=== PATIENT | female | born 1940 | race Caucasian/White ===

== ENCOUNTER 2024-08-24 05:47 | Outpatient (REF) | payer MEDICARE, SELFPAY ==
--- OUTSIDE RECORDS SUMMARY | 2024-04-15 17:30 | XMS_ITS ---
Author Organization [facility] Address [address] [place] [address] Care Team Providers Care Clerk Funeral Detail Name Role Phone DO NOT USE Kenji Barnett MD Primary Care Provider Unavailable OPAL WALLS Unavailable [phone] Migration, Provider Unavailable Unavailable Allergies Allergen (clinical drug ingredient) Drug/Non Drug Allergy documented on EMR Reaction Allergy Type Onset Date Status BIAXIN (uncoded) Unknown Allergy Act ana NYTLY (uncoded) Unknown Allergy Acti ve ciprofloxacin Cipro Unknown Drug Allergy Act ana lisinopril Lisinopril Unknown Drug Allergy Activ e pregabalin Lyrica Unknown Drug Allergy Active celecoxib CeleBREX Unknown Drug Allergy Active codeine Codeine Unknown Drug Allergy Active Penicillin Unknown Drug Allergy Active metformin metFORMIN Unknown Drug Allergy Active [facility] Conversion Encounter Medications Medication SIG (Take, Route, Frequency, Duration) Notes Start Date End Date Status ZyrTEC 5 MG 1 TAB(S) CHEWED ONCE A DAY *Please review and pick correct strength-formulat ion from [employer] options. If intended option is not shown, discontinue and re-order from Quick Search* Unknown B-12 2500 MCG 1 tab(s) sublinguall y once a day; Duration: 30 day(s) Unknown Furosemide 20 MG 1 tab(s) orally once a day; Duration: 30 day(s) Unknown Multivitamin MULTIPLE VITAMINS 1 TAB(S) CHEWED ONCE A DAY; Duration: 30 DAY(S) *Please review and pick correct strength-formulat ion from [employer] options. If intended option is not shown, discontinue and re-order from Quick Search* Unknown LEVEMIR FLEXPEN 100 UNITS/ML 0 SUBCUTANEOUSLY *Please review for potential replacement for e-prescription and drug interaction check* Active Tamsulosin HCl 0.4 MG 1 cap(s) orally once a day; Duration: 30 day(s) Unknown rOPINIRole HCl 1 MG 1 tab(s) orally 3 times a day; Duration: 30 day(s) Unknown Gabapentin 300 MG 1 cap(s) orally 3 times a day; Duration: 30 day(s) Unknown diazePAM 5 MG 1 tab(s) orally 4 times a day Unknown Ondansetron HCl 4 MG 1 tab(s) orally every 8 hours Unknown Premarin 0.625 MG/GM 1 g intravaginally once a day (in the evening); Duration: 21 day(s) Unknown Synthroid 137 MCG 1 tab(s) orally once a day; Duration: 30 day(s) Unknown Gemfibrozil 600 MG 1 tab(s) orally 2 times a day; Duration: 30 day(s) Unknown NexIUM 40 MG 1 ea orally once a day; Duration: 30 day(s) Unknown Atenolol 25 MG 1 tab(s) orally once a day; Duration: 30 day(s) Unknown Bactrim DS 800 MG-160 MG 1 TAB(S) ORALLY 2 TIMES A DAY; Duration: 5 DAYS *Please review and pick correct strength-formulat ion [facility]. If intended option is not shown, discontinue and re-order from Quick Search* 07/30/2014 Unknown Encounters Encounter Location Date Provider Diagnosis [facility] [address] [place] [address] 04/15/2024 Provider Migration Plan Of Treatment No Information Progress Notes * Ana VERNON NDOB: [birth year] (84 yo F)Acc No.[id number]:04/15/2024 Patient: Gino FLORESil N Provider: Kassandra gold Migration :1940 A ge:84 Y S ex:Female Date:04/15/2024 Address:[address] [place] [address] [id number] Pcp:Kenji DO NOT USE MD Ericka Subjective: * Chief Complaints: * 1 . [facility] Conversion Encounter. * Medical History: * Medications: T aking LEVEMIR FLEXPEN 100 UNITS/ML SOLUTION 0 SUBCUTANEOUSLY , Notes to Pharmacist: *Please review for potential replacement for e-prescription and drug interaction check*, Unknown Bactrim DS 800 MG-160 MG TABLET 1 TAB(S) ORALLY 2 TIMES A DAY , Notes to Pharmacist: *Please review and pick correct strength-formulation from [employer] options. If intended option is not shown, discontinue and re-order from Quick Search*, Unknown Gemfibrozil 600 MG Tablet 1 tab(s) orally 2 times a day , Unknown Premarin 0.625 MG/GM Cream 1 g intravaginally once a day (in the evening) , Unknown Synthroid 137 MCG Tablet 1 tab(s) orally once a day , Unknown NexIUM 40 MG Packet 1 ea orally once a day , Unknown Atenolol 25 MG Tablet 1 tab(s) orally once a day , Unknown diazePAM 5 MG Tablet 1 tab(s) orally 4 times a day , Unknown Ondansetron HCl 4 MG Tablet 1 tab(s) orally every 8 hours , Unknown rOPINIRole HCl 1 MG Tablet 1 tab(s) orally 3 times a day , Unknown Gabapentin 300 MG Capsule 1 cap(s) orally 3 times a day , Unknown Tamsulosin HCl 0.4 MG Capsule 1 cap(s) orally once a day , Unknown Furosemide 20 MG Tablet 1 tab(s) orally once a day , Unknown Multivitamin MULTIPLE VITAMINS TABLET, CHEWABLE 1 TAB(S) CHEWED ONCE A DAY , Notes to Pharmacist: *Please review and pick correct strength-formulation from [employer] options. If intended option is not shown, discontinue and re-order from Quick Search*, Unknown ZyrTEC 5 MG TABLET, CHEWABLE 1 TAB(S) CHEWED ONCE A DAY , Notes to Pharmacist: *Please review and pick correct strength-formulation from [employer] options. If intended option is not shown, discontinue and re-order from Quick Search*, Unknown B-12 2500 MCG Tablet 1 tab(s) sublingually once a day * Allergies: C ipro, BIAXIN, NYTLY, metFORMIN, CeleBREX, Codeine, Penicillin, Lisinopril, Lyrica. Objective: * Vitals: Assessment: Plan: * Treatment: * Images: Billing Information: * Visit Code: * Procedure Codes: * Electronic signature of Prov ider Migration on 08/24/2024 at 05:57 AM EDT Sign off status: Pending * Provider: Kassandra gold Migration Date: 0 04/15/2024 Generated for Jadon cottrell/Precious/Corrineitting on: 0 08/24/2024 05:57 AM EDT
--- OUTSIDE RECORDS SUMMARY | 2024-08-24 05:57 | XMS_ITS | Patient Health Record ---
Author Organization Boone Ford MD . [facility] Address [address] [place] [address] Care Team Providers Care Joy Operator Helper Name Role Phone Kenji Barnett Primary Care Provider BOONE Niño Unavailable [phone] ALLERGIES Allergen (clinical drug ingredient) Drug/Non Drug Allergy documented on EMR Reaction Allergy Type Onset Date Status NKDA (uncoded) Unknown Allergy Activ e REASON FOR REFERRAL No Information MEDICATIONS Medication SIG (Take, Route, Frequency, Duration) Notes Start Date End Date Status diazePAM Unknown HYDROmorphone HCl 2 MG 1-2 tablets as needed for pain Orally every 4 hours for 7 days 07/02/2020 Unknown oxyCODONE HCl 5 MG 1 tablet Orally every 6 hrs Unknown HYDROmorphone HCl 2 MG 1-2 tablets as needed for pain Orally every 4 hours for 7 days 06/18/2020 Unknown atenolol Unknown HYDROmorphone HCl 2 MG 1-2 tablet as needed Orally every 6 hrs Reason for prescription and acute postoperative pain care. May dispense S if requested by the patient. ICD-10 is G89.18 07/22/2020 Unknown traMADol HCl 50 MG 1 tablet as needed for pain Orally every 4 hours for 7 days 06/06/2020 Unknown HYDROmorphone HCl 2 MG 1-2 tablets as needed for pain Orally every 6 hours 07/11/2020 Unknown HYDROmorphone HCl 2 MG 0.5-1 tablets as needed for pain Orally every 6 hrs for 7 days 05/24/2020 Unknown Premarin Unknown Gemfibrozil Unknown HYDROmorphone HCl 2 MG 1-2 tablets as needed for pain Orally every 4 hours for 7 days 06/07/2020 Unknown Fluticasone Propionate Unknown Synthroid Unknown rOPINIRole HCl Unkno wn potassium Unknown SOCIAL HISTORY Sex Assigned At : Social History Observation Description Sex Assigned At Unknown PROBLEMS Problem Type ICD Code Onset Dates Problem Status W/U Status Risk SNOMED Code Notes Problem Other spondylosis with myelopathy, 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 Thoracic spondylosis with myelopathy (39973078) Problem Spondylosis without myelopathy or radiculopathy, cervical region (M47.812) Active confirmed Cervical spondylosis without myelopathy (213112323) Problem Spondylosis without myelopathy or radiculopathy, thoracic region (M47.814) Active confirmed Thoracic spondylosis without myelopathy (103604938) Problem Spondylosis without myelopathy or radiculopathy, lumbar region (M47.816) Active confirmed Lumbosacral spondylosis without myelopathy (64782505) Problem Other spondylosis, cervical region (M47.892) Active confirmed Cervical spondylosis without myelopathy (226006649) Problem Other spondylosis, lumbar region (M47.896) Active confirmed Lumbosacral spondylosis without myelopathy (14142468) PLAN OF TREATMENT No Information Insurance Providers Payer Name Payer Address Payer Phone Subscriber Number Group Number Insured Name Patient Relationship to Insured Coverage Start Date Coverage End Date Medicare A/B [id number] Ana Vernon Self - patient is the insured [employer] - [place] Medicare Supp [id number] Ana Vernon Self - patient is the insured MEDICAL (GENERAL) HISTORY Medical History History ICD Code diverfticulits h/o Hypertension h/o Hyperlipidemia h/o DM h/o Osteoporosis/Osteopenia h/o Depression/Anxiety h/o GERD Surgical History Surgery Date(Month/Year) T&A tubal ligation lumbar surgery kidney stone right hip surgery
--- OUTSIDE RECORDS SUMMARY | 2024-08-24 05:57 | XMS_ITS | Patient Health Record ---
Author Organization [facility] Address [address] [place] [address] [address] [place] [address] Care Team Providers Care Teasel Gig Operator Name Role Phone Rigo Valencia M.D. Primary Care Provider LAWRENCE Tejeda Unavailable [phone] Chad NASCIMENTO, Alpesh Unavailable Unavailable Reason For Referral No Information Plan Of Treatment No Information Insurance Providers Payer Name Payer Address Payer Phone Subscriber Number Group Number Insured Name Patient Relationship to Insured Coverage Start Date Coverage End Date Medicare of [place] - [id number] [address] [place] [address] [id number] Ana Vernon Self - patient is the insured [facility] Supplemental [address] [place] [address] [id number] Ana Vernon Self - patient is the insured
--- OUTSIDE RECORDS SUMMARY | 2024-08-24 05:57 | XMS_ITS | Data Portability ---
Author Organization [facility], [facility] Address [address] [place] [address] Care Team Providers Care Automation Manager Name Role Phone DOUGLAS HARDEN Primary Care Provider Assessment Encounter Date Assessment Date Assessment LastModified by Organization Details LastModified Time 03/03/2024 03/03/2024 Assessment sever e chronic right carpal tunnel syndrome Plan: Pathophysiology of carpal tunnel syndrome has been reviewed. Treatment options have been reviewed. She would like to proceed with a wide-awake local carpal tunnel release surgery. We have discussed what is involved with the surgery and the anticipated recovery. This will likely need to be performed at [facility]. We discussed the possibility of irreversible nerve changes that do not fully recover after surgery. We have discussed the postoperative recovery course for the recommended surgery. Risks of surgery include but are not limited to: Infection, bleeding, damage normal tissues, need for future surgeries, and recurrent or recalcitrant symptoms after surgery. Questions asked and answered to the patient's satisfaction; surgery to be scheduled with my paralegal legal secretary. [email or web address] Not available 03/03/2024 15:43:48 Plan of Treatment Reminders Order Date Submit Date Provider Last Modified By Organization Details Last Modified Time Details Appointments RECHECK 10 2024 01:00P M Gareth Bill PA-C Not available Not available Not available Lab None recorded . Referral None recorded . Procedures None recorded . Surgeries carpal tunnel release (SURG) 03/23/ 025 [email or web address] [place], [address], [place], [address], 03/08/2024 10:20:25 Imaging None recorded . Medication Orders None recorded . Patient TargetsNo targets recorded. Patient InstructionsNo instructions recorded. Reason for Referral None Reported. Problems Name Problem SNOMED Code Status Onset Date Resolution Date Notes Provider Name and Address Organization Details Recorded Time Rotator cuff arthropat hy of left shoulder 423210828719 Active 2023 Gareth Bill PA-C [address], [place], [address] , [facility] 4 06:51:14 Closed supracond ylar fracture of right femur 841760804006 Active 2017 Problem Code: S72.451D ; Problem Code Type: ICD-10; Status: 'A'; Not Available [facility] 4 11:12:35 Closed fracture of greater trochante r of right femur 796557782360 Active 2017 Problem Code: S72.111A ; Problem Code Type: ICD-10; Status: 'A'; Not Available [facility] 4 11:12:35 Periprost hetic fracture 411643883 Active 2017 Problem Code: M97.11XA ; Problem Code Type: ICD-10; Status: 'A'; Not Available [facility] 4 11:12:36 Periprost hetic fracture of hip 466353550080 32543 Active 2017 Problem Code: M97.01XD ; Problem Code Type: ICD-10; Status: 'A'; Not Available [facility] 4 11:12:36 Problem Notes None recorded. Procedures Surgical History Date Name Laterality Status Provider Name and Address Organization Details Recorded Time 5 Sports Shoulder completed Gareth Bill PA-C [address], [place], [address], [facility] 07/08/2024 06:36:30 4 Sports Shoulder completed Gareth Bill PA-C [address], [place], [address], [facility] 12/28/2023 09:50:48 4 Sports Shoulder completed Gareth Bill PA-C [address], [place], [address], [facility] 09/13/2023 06:50:58 4 Sports Shoulder 4&1 completed Gareth Bill PA-C [address], [place], [address], [facility] 06/14/2023 13:59:28 Imaging Results None recorded. Procedure Notes None recorded. Medical Equipment None Reported. Allergies Allergen ID Allergen Name Allergen Category Reaction Reaction Severity Criticality Documentation Date Start Date Code Code System Note Provider Name and Address Organization Details Recorded Time 353815 Cipro medicatio n Not available Not available Not available 04/12/20232017 50195 3 RxNorm Not Available [facility] 4 15:26:56 508390 codeine sulfate medicatio n Not available Not available Not available 04/12/20232017 26006 RxNorm Not Available [facility] 4 15:26:57 144367 penicilli n G benzathin e medicatio n Not available Not available Not available 04/12/20232017 7982 RxNorm Not Available [facility] 4 15:26:57 091035 morphine sulfate medicatio n Not available Not available Not available 04/12/20232019 68330 RxNorm Not Available [facility] 4 15:26:57 149919 cephalexi n medicatio n Not available Not available Not available 03/03/2024 2231 RxNorm CHRISTINE TRINIDAD null, [facility] 5 15:56:05 372785 Celebrex medicatio n Not available Not available Not available 03/03/2024 79512 7 RxNorm CHIRSTINE TRINIDAD null, [facility] 5 15:56:14 359009 methenami ne medicatio n Not available Not available Not available 03/03/2024 6832 RxNorm CHRISTINE TRINIDAD null, [facility] 5 15:56:31 178165 tree and shrub pollen environme nt,medica tion Not available Not available Not available 03/03/2024 46257 UNK CHRISTINE quigley, [facility] 5 15:58:23 932163 grass pollen environme nt,medica tion Not available Not available Not available 03/03/2024 18735 UNK CHRISTINE quigley, [facility] 5 15:58:30 725984 Rabbit serum protein (substanc e) environme nt,medica tion Not available Not available Not available 03/03/2024 16640 4002 SNOMED CHRISTINE TRINIDAD [facility], [facility] 5 15:58:38 838395 animal dander environme nt Not available Not available Not available 03/03/2024 43131 K CHRISTINE TRINIDAD [facility], [facility] 15:58:44 Medications Name Sig Start Date Stop Date Status Note LastModified by Organization Details LastModified Time furosemide 40 mg tablet TAKE 1 TABLET BY MOUTH TWICE A DAY active Not Available Not Available No t Available metolazone 2.5 mg tablet TAKE 1 TABLET BY MOUTH EVERY DAY FOR 4 DAYS active Not Available Not Available No t Available nystatin 100,000 unit/mL oral suspension SWISH & SWALLOW 5 ML BY MOUTH 4 TIMES A DAY FOR 10 DAYS active Not Available Not Available No t Available doxycycline hyclate 100 mg capsule TAKE 1 CAPSULE BY MOUTH EVERY 12 HOURS FOR 10 DAYS. MAY TAKE WITH FOOD TO LESSEN STOMACH DISCOMFOR T. active Not Available Not Available No t Available ropinirole 1 mg tablet TAKE 2 TABLETS BY MOUTH TWICE DAILY 03/03 completed Not Available Not Available Not Available atorvastati n 10 mg tablet TAKE 1 TABLET BY MOUTH EVERY DAY active Not Available Not Available No t Available fluconazole 150 mg tablet TAKE 1 TABLET BY MOUTH ONCE active Not Available Not Available No t Available cephalexin 250 mg capsule TAKE 1 CAPSULE BY MOUTH 3 TIMES A DAY FOR 7 DAYS active Not Available Not Available No t Available Synthroid 150 mcg tablet active Not Available Not Available Not Available FreeStyle Lancets 28 gauge USE TO CHECK BLOOD SUGARS ONCE A DAY 03/03 completed Not Available Not Available Not Available Synthroid 125 mcg tablet TAKE 1 TABLET BY MOUTH DAILY active Not Available Not Available No t Available famotidine 40 mg tablet TAKE 1 TABLET BY MOUTH TWICE A DAY active Not Available Not Available No t Available glipizide ER 5 mg tablet, extended release 24 hr TAKE 1 TABLET BY MOUTH EVERY DAY active Not Available Not Available No t Available atenolol 25 mg tablet active Not Available Not Available No t Available potassium chloride ER 10 mEq tablet,exte nded release active Not Available Not Available Not Available prochlorper azine maleate 10 mg tablet TAKE 1 TABLET BY MOUTH 2 TIMES A DAY NEEDED FOR NAUSEA & VOMITING active Not Available Not Available No t Available trimethopri m 100 mg tablet TAKE 1 TABLET BY MOUTH EVERY DAY AT BEDTIME active Not Available Not Available No t Available sulfamethox azole 800 mg-trimetho prim 160 mg tablet TAKE 1 TABLET BY MOUTH TWICE A DAY FOR 7 DAYS active Not Available Not Available No t Available tramadol 50 mg tablet TAKE 1 TABLET BY MOUTH EVERY 6 HOURS FOR 28 DAYS NEEDED FOR SEVERE PAIN active Not Available Not Available No t Available spironolact one 25 mg tablet TAKE 1 TABLET BY MOUTH EVERY MORNING active Not Available Not Available No t Available cefadroxil 500 mg capsule TAKE 1 CAPSULE BY MOUTH EVERY 12 HOURS FOR 7 DAYS active Not Available Not Available No t Available baclofen 10 mg tablet TAKE 1/2 TABLET BY MOUTH 3 TIMES A DAY NEEDED FOR SPASM active Not Available Not Available No t Available doxycycline monohydrate 100 mg capsule TAKE 1 CAPSULE BY MOUTH TWICE A DAY FOR 10 DAYS active Not Available Not Available No t Available ropinirole 2 mg tablet TAKE 1 TABLET BY MOUTH TWICE A DAY NEEDED RESTLESS LEGS active Not Available Not Available No t Available cephalexin 500 mg capsule TAKE 1 CAPSULE BY MOUTH FOUR TIMES A DAY FOR 10 DAYS active Not Available Not Available No t Available pseudoephed rine-guaife nesin ER 80-700 mg tablet,exte nded release PRN PAINDO NOT DRIVE WHILE TAKING THIS MEDICATIO N 2017 active Statu s: 'Curr ent'; Not Available Not Available Not Available esomeprazol e magnesium 40 mg capsule,del ayed release active Not Available Not Available Not Available sertraline 25 mg tablet TAKE 1 TABLET BY MOUTH EVERYDAY AT BEDTIME active Not Available Not Available No t Available irbesartan 75 mg tablet TAKE 1 TABLET BY MOUTH EVERY DAY active Not Available Not Available No t Available hydroxyzine HCl 25 mg tablet TAKE 1 CAPSULE BY MOUTH 3 TIMES A DAY FOR 14 DAYS, NEEDED FOR ANXIETY active Not Available Not Available No t Available albuterol sulfate HFA 90 mcg/actuati on aerosol inhaler INHALE 2 PUFFS EVERY 6 HOURS NEEDED FOR SHORTNESS OF BREATH OR WHEEZING active Not Available Not Available No t Available ondansetron 4 mg disintegrat ing tablet TAKE 1 TABLET BY MOUTH EVERY 6 HOURS NEEDED FOR NAUSEA AND VOMITING active Not Available Not Available No t Available fluticasone propionate 50 mcg/actuati on nasal spray,suspe nsion active Not Available Not Available Not Available magnesium active Not Available Not Nenita ilable Not Available aspirin active Not Available Not Avail able Not Available levothyroxi ne active Not Available Not Available Not Available omeprazole active Not Available Not Av ailable Not Available FreeStyle Lite Meter kit USE TO CHECK BLOOD SUGARS ONCE A DAY 03/03 completed Not Available Not Available Not Available FreeStyle Lite Strips USE TO CHECK BLOOD SUGARS ONCE A DAY 03/03 completed Not Available Not Available Not Available oxycodone HCl-oxycodo ne-ASA oxyCODONE HCl 5MG Tablet 2017 active Statu s: 'Curr ent'; Not Available Not Available Not Available Vitals Date Recorded Body height Provider Name an d Address Organization Details Last Updated DateTime 03/03/2024 157.48 cm CHRISTINE TRINIDAD [facility] 03/03/2024 15:20:59 Date Recorded Body height Body mass index (BMI) Body weight Provider Name and Address Organization Details Last Updated DateTime 06/14/2023 157.48 cm 31.1 kg/m2 62705.7 g Gareth Bill PA-C [address], [address], [facility] 06/14/2023 13:47:48 Date Recorded Body height Body mass index (BMI) Body weight Provider Name and Address Organization Details Last Updated DateTime 07/07/2024 157.48 cm 31.1 kg/m2 76043.7 g Gareth Bill PA-C [address] [place] [address], [address], [facility] 07/07/2024 15:02:33 Date Recorded Body height Body mass index (BMI) Body weight Provider Name and Address Organization Details Last Updated DateTime 09/13/2023 157.48 cm 31.1 kg/m2 82941.7 g Gareth Bill PA-C [address], [place], [address], [facility] 09/13/2023 13:42:42 Date Recorded Body height Body mass index (BMI) Body weight Provider Name and Address Organization Details Last Updated DateTime 12/28/2023 157.48 cm 31.1 kg/m2 23336.7 g Gareth Bill PA-C [address], [place], [address], [facility] 12/28/2023 12:45:36 Social History None recorded. Functional Status None recorded. Mental Status None recorded. Family History Nothing Reported. Medical History No medical history recorded. Gynecological HistoryNo gynecological history recorded. Obstetrics History GPAL:G 0 P 0 0 0 0 Past Encounters Encounter ID Performer Location Encounter Start Date Encounter Closed Date Diagnosis/Indication Diagnosis SNOMED-CT Code Diagnosis ICD10 Code Diagnosis Note [id number] Gareth Bill PA-C [facility] [address] [place] [address] 06/14/2023 13:34:35 06/24/2023 16:13:03 [id number] [facility] [address] [place] [address] 09/13/2023 13:32:33 10/04/2023 16:15:12 Rotator cuff arthropathy of left shoulder 4586464226 8948800 M25.254 [id number] JOSHUA Uribe [address] [place] [address] 12/28/2023 12:39:33 01/17/2024 09:30:24 Rotator cuff arthropathy of left shoulder 5886562408 7084320 M25.728 [id number] MD AKTHERYN [facility] [address] [place] [address] 03/03/2024 14:57:40 03/22/2024 07:46:31 Carpal tunnel syndrome of right wrist 2144612848 72420 G56.01 [id number] JOSHUA Uribe [address] [place] [address] 07/07/2024 14:50:34 07/18/2024 12:41:32 Rotator cuff arthropathy of left shoulder 6486091476 3908908 M25.812 Health Concerns Section Related Observation LastModified by Organization Detai ls LastModified Time None Recorded Concern Status LastModified by Organization Details LastModified Time None Recorded Advance Directives Directive None Recorded Payers Insurance Date Sequence Insurance Name Policy Number Policy Vazquez Covered Member ID Vazquez Member ID Guarantor Name 07/18/2024 2 [employer] (MEDICARE SUPPLEMENT) Ana Vernon [id number] Ana Vernon 07/07/2024 1 [place]IC[place] [employer] Ana Vernon [id number] Ana eVrnon Notes Date Note Type Note Provider Name and Address Organization Details Recorded Time 06/14/2023 text/html I am seeing the patient today under the supervision of Dr. Cotton who was available but who did not see the patient. REASON FOR VISIT Patient returns today for follow-up evaluation reporting less benefit from previous injection in the medical record. She has been suffering with day-to-day limitations comes and wants to discuss possibility of repeat injection. PAST MEDICAL/SURGICAL HISTORY Current medications per intake sheet. PHYSICAL FINDINGS The patient is well appearing, in no apparent distress, alert and oriented to person, place and time. Gait is symmetric. No significant swelling, warmth or erythema about either shoulder. LeftShoulder exam : Limited range of motion with slightly altered mechanics in all planes, there is mild tenderness to palpation about the shoulder, moderate crepitus through mid range manipulations. 4/5 strength of the shoulder with ER, Forward flexion. Negative belly press test. Minimal tenderness overlying AC joint. Cervical Exam demonstrates limited ROM without radicular symptoms. Peripheral, vascular, lymphatic examination, skin, neurologic coordination, reflexes, sensation are within normal limits. ASSESSMENT Left Chronic Rotator Cuff Tear PLAN Moderating activities with the upper extremity recommended. The patient will follow up as symptoms require going forward. Supramed speech recognition juvenile justice officer software was used to create portions of this document. An attempt at proofreading has been made to minimize errors. Please call for corrections Gareth Bill PA-C [address], [place], [address], [facility] 06/14/2023 14:01:49 09/13/2023 text/html I am seeing the patient today under the supervision of Dr. Cotton who was available but who did not see the patient. REASON FOR VISIT Patient returns today for follow-up evaluation reporting less benefit from previous injection in the medical record. She has been suffering with day-to-day limitations comes and wants to discuss possibility of repeat injection. PAST MEDICAL/SURGICAL HISTORY Current medications per intake sheet. PHYSICAL FINDINGS The patient is well appearing, in no apparent distress, alert and oriented to person, place and time. Gait is symmetric. No significant swelling, warmth or erythema about either shoulder. LeftShoulder exam : Limited range of motion with slightly altered mechanics in all planes, there is mild tenderness to palpation about the shoulder, moderate crepitus through mid range manipulations. 4/5 strength of the shoulder with ER, Forward flexion. Negative belly press test. Minimal tenderness overlying AC joint. Cervical Exam demonstrates limited ROM without radicular symptoms. Peripheral, vascular, lymphatic examination, skin, neurologic coordination, reflexes, sensation are within normal limits. ASSESSMENT Left Chronic Rotator Cuff Tear PLAN Moderating activities with the upper extremity recommended. The patient will follow up as symptoms require going forward. Supramed speech recognition juvenile justice officer software was used to create portions of this document. An attempt at proofreading has been made to minimize errors. Please call for corrections JIMI Uribe-Char [address], [place], [address], [facility] 09/13/2023 14:09:41 12/28/2023 text/html I am seeing the patient today under the supervision of Dr. Martinez who was available but who did not see the patient. REASON FOR VISITPatient returns today for follow-up evaluation reporting less benefit from previous injection in the medical record. She has been suffering with day-to-day limitations comes and wants to discuss possibility of repeat injection. PAST MEDICAL/SURGICAL HISTORYCurrent medications per intake sheet. PHYSICAL FINDINGSThe patient is well appearing, in no apparent distress, alert and oriented to person, place and time. Gait is symmetric. No significant swelling, warmth or erythema about either shoulder. LeftShoulder exam : Limited range of motion with slightly altered mechanics in all planes, there is mild tenderness to palpation about the shoulder, moderate crepitus through mid range manipulations. 4/5 strength of the shoulder with ER, Forward flexion. Negative belly press test. Minimal tenderness overlying AC joint. Cervical Exam demonstrates limited ROM without radicular symptoms. Peripheral, vascular, lymphatic examination, skin, neurologic coordination, reflexes, sensation are within normal limits. ASSESSMENTLeft Chronic Rotator Cuff Tear PLANModerating activities with the upper extremity recommended. The patient will follow up as symptoms require going forward. Supramed speech recognition juvenile justice officer software was used to create portions of this document. An attempt at proofreading has been made to minimize errors. Please call for corrections Gareth Bill PA-C [address], [place], [address], [facility] 12/28/2023 13:04:44 03/03/2024 text/html 83 yo RHD female seen for transfer of care for right carpal tunnel syndrome diagnosed and treated to this point at the hand center where she had anticipated scheduling a right carpal tunnel release surgery, but the surgery was never successfully scheduled and she is here today hoping to achieve this goal of scheduling a right carpal tunnel release surgery. Domi Lopez MD [address], [place], [address], [facility] 03/03/2024 15:44:33 07/07/2024 text/html I am seeing the patient today under the supervision of Dr. Martinez who was available but who did not see the patient. Clinical update: Patient returns today for follow-up evaluation, we are sorry for the loss of her who within the last several months. She comes in with ongoing complaints of left shoulder pain, she is having some lower leg swelling she is utilizing compression wraps and is scheduled to see the wound clinic for this. PAST MEDICAL/SURGICAL HISTORYCurrent medications per intake sheet. PHYSICAL FINDINGSThe patient is well appearing, in no apparent distress, alert and oriented to person, place and time. Gait is symmetric. No significant swelling, warmth or erythema about either shoulder. LeftShoulder exam : Limited range of motion with slightly altered mechanics in all planes, there is mild tenderness to palpation about the shoulder, moderate crepitus through mid range manipulations. 4/5 strength of the shoulder with ER, Forward flexion. Negative belly press test. Minimal tenderness overlying AC joint. Cervical Exam demonstrates limited ROM without radicular symptoms. Peripheral, vascular, lymphatic examination, skin, neurologic coordination, reflexes, sensation are within normal limits. ASSESSMENTLeft Chronic Rotator Cuff Tear PLANModerating activities with the upper extremity recommended. The patient will follow up as symptoms require going forward. [facility] speech recognition juvenile justice officer software was used to create portions of this document. An attempt at proofreading has been made to minimize errors. Please call for corrections Gareth Bill PA-C [address] [place] [address] [address], [place], [address], [place] [facility] 07/08/2024 06:37:56 OBGyn Episode No OBEpisode recorded.
--- OUTSIDE RECORDS SUMMARY | 2024-08-24 05:58 | XMS_ITS | Patient Health Record ---
Author Organization [facility] Address [address] [place], [place] [id number] Care Team Providers Care Radiological Metallurgist Name Role Phone Rene Forde MD Primary Care Provider Germaine High MD, [facility] Unavailable [phone] Allergies Allergen (clinical drug ingredient) Drug/Non Drug Allergy documented on EMR Reaction Allergy Type Onset Date Status codeine Codeine Sulfate Unknown Drug Allergy A ctive Penicillin Unknown Drug Allergy Active Reason For Referral No Information Medications Medication SIG (Take, Route, Frequency, Duration) Notes Start Date End Date Status Estradiol 0.1 MG/GM 2 grams intravaginal ly QOD; Duration: 90 days 11/10/2012 Active Beta-Funmilayo 0.1 % 1 application sparin gly to affected area Externally prn Active Neurontin 100 MG as directed Orally Active Clobetasol Propionate 0.05 % 1 application to affected area Externally Twice a day; Duration: 30 day(s) 08/17/2012 Active Gabapentin 300 mg as directed Orally 3 x's daily Active NexIUM 40 MG 1 capsule Orally Onc e a day; Duration: 30 day(s) Active rOPINIRole HCl 1 MG 1 tablet 1 to 3 hour s before bedtime Orally 3 x 's daily; Duration: 30 day(s) Active Atenolol 25 MG 1 tablet Orally Once a day; Duration: 30 day(s) Active Zofran 4 MG as directed Orally Active Vagisil Active Requip unknown 1 tablet 1 to 3 hour s before bedtime Orally Once a day; Duration: 30 day(s) Activ e Gemfibrozil 600 MG 1 tablet Orally Twic e a day; Duration: 30 day(s) Active Premarin .625 mg Act ana Synthroid 0.137 mg A ctive Social History Tobacco Use: Social History Observation Description Date Details (start date - stop date) Former Smoker NA - NA Tobacco Use: Question Answer Notes Are you a: former smoker How long has it been since you last smoked? 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 Plan Of Treatment No Information Insurance Providers Payer Name Payer Address Payer Phone Subscriber Number Group Number Insured Name Patient Relationship to Insured Coverage Start Date Coverage End Date MEDICARE B Part B Claims [address] [place] [phone] [id number] Ana Vernon Self - patient is the insured [facility] [address] [place] [address] [id number] Ana Vernon Self - patient is the insured Medical (General) History Medical History History ICD Code hypertension (HTN) Hypothyroidism REFLUX hypercholestrolemia cataracts back issue Hospitalized for episode of GERD type 2 diabetes Fell, R ankle fx, L leg fx restless leg syndrome 2012 Surgical History Surgery Date(Month/Year) T & A eye sx L 1947 cataract removal bilateral tubal ligation (BTL) 1970 hysterectomy (kept ovaries) 1971 hernia repair LL abd. 1988 breast lump removed B-9 L 1994 cholecystectomy 1996 carpal tunnel 2008 rotator cuff tear repair 2008 hip replacement RT 2009 Lap BSO, [place], cystoscopy
[2024-08-24 06:03] LABS: MANUAL DIFF FLAG NO
[2024-08-24 06:30] LABS: Hematocrit 36.0 % (37.0-47.0); Hemoglobin 11.5 g/dl (12.0-16.0); Imm Gran Abs Auto 0.22 X10*3/uL (0.00-0.03); Imm Gran Pct Auto 2.6 % (0.0-0.4); Lymphocytes Absolute Auto 1.5 X10*3/uL (1.2-4.9); Mean Corpuscular HGB Conc 31.9 g/dl (31.0-35.0); Mean Corpuscular Hemoglobin 30.5 pg (27.0-33.0); Mean Corpuscular Volume 95.5 fL (80.0-98.0); NRBC Abs Auto 0.000 X10*3/uL (0.0-0.012); NRBC Pct Auto 0.0 /100WBC (0.0-0.2); Platelet Count 237 X10*3/uL (160-400); Red Blood Count 3.77 X10*6/uL (4.20-5.50); White Blood Count 8.5 X10*3/uL (4.8-10.8)
[2024-08-24 06:43] LABS: Alanine Aminotransferase 39 U/L (0-31); Albumin Level 3.1 g/dL (3.5-5.0); Alkaline Phosphatase 175 U/L (39-117); Anion Gap 13 (12-20); Aspartate Amino Transferase 63 U/L (5-31); Blood Urea Nitrogen 15 mg/dL (9-16); Calcium 8.4 mg/dL (8.4-10.2); Carbon Dioxide 22 mmol/L (22-29); Chloride 109 mmol/L (96-108); Estimated Glomerular Filt Rate > 60; Potassium 3.4 mmol/L (3.3-5.1); Sodium 141 mmol/L (135-145); Total Protein 6.1 g/dL (6.5-8.0)
[2024-08-24 07:32] LABS: Hemoglobin A1C 190.7202 umol/L; Total Hemoglobin (HGBA1C) 3005.2366 umol/L
== END 2024-08-24 05:48 | disposition home or self-care (01) ==
LOC: HO.MMNH2L 05:47
PROVIDERS: Visit Provider Student in an Organized Health Care Education/Training Program
DX: Z02.2 Encounter for examination for admission to residential institution (principal); Z13.1 Encounter for screening for diabetes mellitus; L03.90 Cellulitis, unspecified
CPT/HCPCS: 36415; 80053; 83036; 85025

== ENCOUNTER 2024-11-22 06:06 | Outpatient (REF) | payer MEDICARE, SELFPAY ==
--- OUTSIDE RECORDS SUMMARY | 2024-04-15 17:30 | XMS_ITS ---
Author Organization [facility] Address [address] [place] [address] Care Team Providers Care Human Factors Ergonomist Name Role Phone DO NOT USE Kenji Barnett MD Primary Care Provider Unavailable OPAL WALLS Unavailable [phone] Migration, Provider Unavailable Unavailable Allergies Allergen (clinical [...] Unknown Drug Allergy Active REASON FOR VISIT [facility] Conversion Encounter Medications Medication SIG (Take, Route, Frequency, Duration) Notes Start Date End Date Status ZyrTEC 5 MG TABLET, CHEWABLE 1 TAB(S) CHEWED ONCE A DAY *Please review and pick correct strength-formulat ion from [employer] options. If intended option is not shown, discontinue and re-order from Quick Search* Unknown B-12 2500 MCG Tablet 1 tab(s) sublingually once a day; Duration: 30 day(s) Unknown Furosemide 20 MG Tablet 1 tab(s) orally once a day; Duration: 30 day(s) Unknown Multivitamin MULTIPLE VITAMINS TABLET, CHEWABLE 1 TAB(S) CHEWED ONCE A DAY; Duration: 30 DAY(S) *Please review and pick correct strength-formulat ion from [employer] options. If intended option is not shown, discontinue and re-order from Quick Search* Unknown LEVEMIR FLEXPEN 100 UNITS/ML SOLUTION 0 SUBCUTANEOUSLY *Please review for potential replacement for e-prescription and drug interaction check* Active Tamsulosin HCl 0.4 MG Capsule 1 cap(s) orally once a day; Duration: 30 day(s) Unknown rOPINIRole HCl 1 MG Tablet 1 tab(s) orally 3 times a day; Duration: 30 day(s) Unknown Gabapentin 300 MG Capsule 1 cap(s) orally 3 times a day; Duration: 30 day(s) Unknown diazePAM 5 MG Tablet 1 tab(s) orally 4 times a day Unknown Ondansetron HCl 4 MG Tablet 1 tab(s) orally every 8 hours Unknown Premarin 0.625 MG/GM Cream 1 g intravaginally once a day (in the evening); Duration: 21 day(s) Unknown Synthroid 137 MCG Tablet 1 tab(s) orally once a day; Duration: 30 day(s) Unknown Gemfibrozil 600 MG Tablet 1 tab(s) orally 2 times a day; Duration: 30 day(s) Unknown NexIUM 40 MG Packet 1 ea orally once a day; Duration: 30 day(s) Unknown Atenolol 25 MG Tablet 1 tab(s) orally once a day; Duration: 30 day(s) Unknown Bactrim DS 800 MG-160 MG TABLET 1 TAB(S) ORALLY 2 TIMES A DAY; Duration: 5 DAYS *Please review and pick correct strength-formulat ion from [employer] options. If intended option is not shown, discontinue and re-order from Quick Search* 07/30/2014 Unknown Encounters Encounter Location Date Provider Diagnosis [facility] [address] [place] [address] 04/15/2024 Provider Migration Plan Of Treatment No Information Progress Notes * Ana VERNON NDOB: [birth year] (84 yo F)Acc No.[id number]:04/15/2024 Patient: Sirena corby Ana N Provider: Kassandra gold Migration :1940 A ge:84 Y S ex:Female Date:04/15/2024 Address:[address] [place] [address] [place], [place] Pcp:Kenji DO NOT USE MD Ericka Subjective: * Chief Complaints: * [facility] Conversion Encounter * Medications: T akingLEVEMIR FLEXPEN 100 UNITS/ML SOLUTION 0 SUBCUTANEOUSLY , Notes to Pharmacist: *Please review for potential replacement for e-prescription and drug interaction check*Taking LEVEMIR FLEXPEN 100 UNITS/ML SOLUTION 0 SUBCUTANEOUSLY , Notes to Pharmacist: *Please review for potential replacement for e-prescription and drug interaction check*UnknownBactrim DS 800 MG-160 MG TABLET 1 TAB(S) ORALLY 2 TIMES A DAY , Notes to Pharmacist: *Please review and pick correct strength-formulation from [employer] options. If intended option is not shown, discontinue and re-order from Quick Search*Gemfibrozil 600 MG Tablet 1 tab(s) orally 2 times a day Premarin 0.625 MG/GM Cream 1 g intravaginally once a day (in the evening) Synthroid 137 MCG Tablet 1 tab(s) orally once a day NexIUM 40 MG Packet 1 ea orally once a day Atenolol 25 MG Tablet 1 tab(s) orally once a day diazePAM 5 MG Tablet 1 tab(s) orally 4 times a day Ondansetron HCl 4 MG Tablet 1 tab(s) orally every 8 hours rOPINIRole HCl 1 MG Tablet 1 tab(s) orally 3 times a day Gabapentin 300 MG Capsule 1 cap(s) orally 3 times a day Tamsulosin HCl 0.4 MG Capsule 1 cap(s) orally once a day Furosemide 20 MG Tablet 1 tab(s) orally once a day Multivitamin MULTIPLE VITAMINS TABLET, CHEWABLE 1 TAB(S) CHEWED ONCE A DAY , Notes to Pharmacist: *Please review and pick correct strength-formulation from [employer] options. If intended option is not shown, discontinue and re-order from Quick Search*ZyrTEC 5 MG TABLET, CHEWABLE 1 TAB(S) CHEWED ONCE A DAY , Notes to Pharmacist: *Please review and pick correct strength-formulation from [employer] options. If intended option is not shown, discontinue and re-order from [employer] Search*B-12 2500 MCG Tablet 1 tab(s) sublingually once a day Unknown Bactrim DS 800 MG-160 MG TABLET 1 TAB(S) ORALLY 2 TIMES A DAY , Notes to Pharmacist: *Please review and pick correct strength-formulation from [employer] options. If intended option is not shown, discontinue and re-order from Quick Search*Unknown Gemfibrozil 600 MG Tablet 1 tab(s) orally 2 times a day Unknown Premarin 0.625 MG/GM Cream 1 g intravaginally once a day (in the evening) Unknown Synthroid 137 MCG Tablet 1 tab(s) orally once a day Unknown NexIUM 40 MG Packet 1 ea orally once a day Unknown Atenolol 25 MG Tablet 1 tab(s) orally once a day Unknown diazePAM 5 MG Tablet 1 tab(s) orally 4 times a day Unknown Ondansetron HCl 4 MG Tablet 1 tab(s) orally every 8 hours Unknown rOPINIRole HCl 1 MG Tablet 1 tab(s) orally 3 times a day Unknown Gabapentin 300 MG Capsule 1 cap(s) orally 3 times a day Unknown Tamsulosin HCl 0.4 MG Capsule 1 cap(s) orally once a day Unknown Furosemide 20 MG Tablet 1 tab(s) orally once a day Unknown Multivitamin MULTIPLE VITAMINS TABLET, CHEWABLE 1 TAB(S) CHEWED ONCE A DAY , Notes to Pharmacist: *Please review and pick correct strength-formulation from [employer] options. If intended option is not shown, discontinue and re-order from Quick Search*Unknown ZyrTEC 5 MG TABLET, CHEWABLE 1 TAB(S) CHEWED ONCE A DAY , Notes to Pharmacist: *Please review and pick correct strength-formulation from [employer] options. If intended option is not shown, discontinue and re-order from Quick Search*Unknown B-12 2500 MCG Tablet 1 tab(s) sublingually once a day * Allergies: C iproBIAXINNYTLYmetFORMINCeleBREXCodeinePenicillinLisinoprilLyrica * Electronic signature of Prov ider Migration on 11/22/2024 at 06:09 AM EDT Sign off status: Pending * Provider: Kassandra gold Migration Date: 0 04/15/2024 Generated for Jadon cottrell/Precious/Emiliano on: 1 06:09 AM EDT
--- OUTSIDE RECORDS SUMMARY | 2024-11-22 06:09 | XMS_ITS | Patient Health Record ---
Author Organization [facility] Address [address] [place] [address] [address] [place] [address] Care Team Providers Care Hide And Skin Colerer Name Role Phone Rigo Valencia M.D. Primary Care Provider LAWRENCE Tejeda Unavailable [phone] Chad NASCIMENTO, Alpesh Unavailable Unavailable Reason For Referral No Information Plan Of Treatment No Information Insurance Providers Payer Name Payer Address Payer Phone Subscriber Number Group Number Insured Name Patient Relationship to Insured Coverage Start Date Coverage End Date Medicare of [place] - J14 [address] [place] [address] [id number] Ana Vernon Self - patient is the insured [facility] Supplemental [address] [place] [id number] Ana Vernon Self - patient is the insured
--- OUTSIDE RECORDS SUMMARY | 2024-11-22 06:09 | XMS_ITS | Patient Health Record ---
Author Organization Boone Ford MD . [facility] Address [address] [place] [address] Care Team Providers Care Stock Order Lister Name Role Phone Kenji Barnett Primary Care Provider BOONE Niño Unavailable [phone] ALLERGIES Allergen (clinical drug ingredient) Drug/Non Drug [...] (M47.14) Active confirmed Thoracic spondylosis with myelopathy (47330373) Problem Spondylosis without myelopathy or radiculopathy, cervical region (M47.812) Active confirmed Cervical spondylosis without myelopathy (197169043) Problem Spondylosis without myelopathy or radiculopathy, thoracic region (M47.814) Active confirmed Thoracic spondylosis without myelopathy (461128094) Problem Spondylosis without myelopathy or radiculopathy, lumbar region (M47.816) Active confirmed Lumbosacral spondylosis without myelopathy (25740262) Problem Other spondylosis, cervical region (M47.892) Active confirmed Cervical spondylosis without myelopathy (302538932) Problem Other spondylosis, lumbar region (M47.896) Active confirmed Lumbosacral spondylosis without myelopathy (58497863) PLAN OF TREATMENT No Information Insurance Providers Payer Name Payer Address Payer Phone Subscriber Number Group Number Insured Name Patient Relationship to Insured Coverage Start Date Coverage End Date Medicare A/B [id number] Ana Vernon Self - patient is the insured [employer] - [place] Supp [id number] Ana Vernon Self - patient is the insured MEDICAL (GENERAL) HISTORY Medical History History ICD Code diverfticulits h/o Hypertension h/o Hyperlipidemia h/o DM h/o Osteoporosis/Osteopenia h/o Depression/Anxiety h/o GERD Surgical History Surgery Date(Month/Year) T&A tubal ligation lumbar surgery kidney stone right hip surgery
--- OUTSIDE RECORDS SUMMARY | 2024-11-22 06:09 | XMS_ITS | Patient Health Record ---
Author Organization [facility] Address [address] [place] [address] Care Team Providers Care Member Certification Manager Name Role Phone DO NOT USE Kenji Barnett MD Primary Care Provider Unavailable OP[facility]ED Unavailable [phone] Migration, Provider Unavailable Unavailable Allergies Allergen (clinical [...] Active metformin metFORMIN Unknown Drug Allergy Active Reason For Referral No Information Medications Medication SIG (Take, Route, Frequency, Duration) Notes Start Date End Date Status Tamsulosin HCl 0.4 MG Capsule 1 cap(s) orally once a day; Duration: 30 day(s) Unknown Bactrim DS 800 MG-160 MG TABLET 1 TAB(S) ORALLY 2 TIMES A DAY; Duration: 5 DAYS *Please review and pick correct strength-formulat ion from [employer] options. If intended option is not shown, discontinue and re-order from Quick Search* 07/30/2014 Unknown rOPINIRole HCl 1 MG Tablet 1 tab(s) orally 3 times a day; Duration: 30 day(s) Unknown Gabapentin 300 MG Capsule 1 cap(s) orally 3 times a day; Duration: 30 day(s) Unknown Premarin 0.625 MG/GM Cream 1 g intravaginally once a day (in the evening); Duration: 21 day(s) Unknown ZyrTEC 5 MG TABLET, CHEWABLE 1 TAB(S) CHEWED ONCE A DAY *Please review and pick correct strength-formulat ion from [employer] options. If intended option is not shown, discontinue and re-order from Quick Search* Unknown Synthroid 137 MCG Tablet 1 tab(s) orally once a day; Duration: 30 day(s) Unknown B-12 2500 MCG Tablet 1 tab(s) sublingually once a day; Duration: 30 day(s) Unknown Furosemide 20 MG Tablet 1 tab(s) orally once a day; Duration: 30 day(s) Unknown Gemfibrozil 600 MG Tablet 1 tab(s) orally 2 times a day; Duration: 30 day(s) Unknown Multivitamin MULTIPLE VITAMINS TABLET, CHEWABLE 1 TAB(S) CHEWED ONCE A DAY; Duration: 30 DAY(S) *Please review and pick correct strength-formulat ion from [employer] options. If intended option is not shown, discontinue and re-order from Quick Search* Unknown diazePAM 5 MG Tablet 1 tab(s) orally 4 times a day Unknown Ondansetron HCl 4 MG Tablet 1 tab(s) orally every 8 hours Unknown NexIUM 40 MG Packet 1 ea orally once a day; Duration: 30 day(s) Unknown LEVEMIR FLEXPEN 100 UNITS/ML SOLUTION 0 SUBCUTANEOUSLY *Please review for potential replacement for e-prescription and drug interaction check* Active Atenolol 25 MG Tablet 1 tab(s) orally once a day; Duration: 30 day(s) Unknown Social History Social History Additional Details Category Social Info Options Details Social History Alcohol: Rarely Problems Problem Type SNOMED Code ICD Code Onset Dates Problem Status W/U Status Risk Notes Problem Renal stone (90814135) Renal stone (592.0) Active confirmed Problem Gross hematuria (222297033) Gross Hematuria (599.71) Active confirmed Problem Flank pain (809228873) Flank Pain (789.00) Active confirmed Problem Hydronephrosis (37427267) Hydronephrosis (591) Active confirmed Problem Renal stone (68539551) Renal Stone (592.0) Active confirmed Problem Microscopic hematuria (412751997) Hematuria, Microscopic (599.72) Active confirmed Problem Calculus of kidney (72941578) Calculus of kidney (N20.0) Active confirmed Encounters Encounter Location Date Provider Diagnosis [facility] [address] [place] [address] 04/15/2024 Provider Migration Plan Of Treatment Pending Test Test Name Order Date Renal Ultrasound 02/07/2014 bladder ultrasound 02/07/2014 KUB (Abdomen) (XRAY) 01/08/2017 KUB (Abdomen) (XRAY) 11/08/2016 US: RENAL (CPT: 22793) 11/08/2016 Insurance Providers Payer Name Payer Address Payer Phone Subscriber Number Group Number Insured Name Patient Relationship to Insured Coverage Start Date Coverage End Date MEDICARE [address] [place] [phone] [id number] Ana Vernon Self - patient is the insured [facility] Medicare Supplement [address] [facility] [place] [address] [id number] Ana Vernon Self - patient is the insured Medical (General) History Medical History History ICD Code Impaired fasting glucose Hypethyroidism Hypertension Hormone replacement therapy since 1968 Alleric rhinitis Gastroesophageal reflux disease Diverticulosis and polyps noted on colon oscopy fractued rigt leg and ankle Diabetic Surgical History Surgery Date(Month/Year) [place] Cystoscopy Left Ureteroscopy Laser L ithotripsy with Dr. Sneed 02/24/2013 tonselectomy adenoidectomy left eye repair crossed eye tubal ligation 1968 [place] CYSTOSCOPY RIGHT URETERO SCOPY RENOSCOPY LASER LITHOTRIPSY WITH
--- OUTSIDE RECORDS SUMMARY | 2024-11-22 06:09 | XMS_ITS | Patient Health Record ---
Author Organization [facility] Address [address] [place], [place] [id number] Care Team Providers Care Machine Heel Seat Laster Name Role Phone Rene Forde MD Primary Care Provider Germaine High MD, [facility] Unavailable [phone] Allergies Allergen (clinical drug ingredient) Drug/Non Drug [...] Risk Notes Problem Mass of uterine adnexa (864261050) Adnexal mass (625.8) Active confirmed Problem Hypertension (90282894) Hypertension NOS (401.9) Active confirmed Problem Menopausal symptom (65265113) Menopausal symptoms (627.2) Active confirmed Problem Dystrophy of vulva (23352343) 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
--- OUTSIDE RECORDS SUMMARY | 2024-11-22 06:09 | XMS_ITS | Data Portability ---
Author Organization [place] - [facility], [facility] Address [address] [place] [id number] Assessment Encounter Date Assessment Date Assessment LastModified by Organization Details LastModified Time 05/24/2019 05/24/2019 Overview/History : 79 yo female known to but new to this provider who presents with complain of right foot pain and left knee pain after a fall; patient reports she fell yesterday; the fall was mechanical in nature; denies head trauma; only injured her right foot and left knee. Patient states pain is severe in her right foot; she is not able to put any weight on her foot. Patient has been taking pain medications and applying ice. Patient denies any other symptoms. Comorbidities: depression, diabetes, hyperlipidemia, hypertension, restless leg syndrome, degenerative joint disease and arthritis Exam: elderly female, well appearing, no acute distress, non-toxic appearance; alert and oriented X3; sitting in the wheelchair at the time of evaluation Heart sounds are regular rate and rhythm; no audible murmurs, rubs, or gallops No signs of respiratory distress. Lungs are clear to auscultation in all fileds Lower extremities without external signs of trauma. Right ankle joint without swelling, bruising or erythema; no gross deformity; tenderness on palpation noted over medial and lateral malleolus; ROM is limited due to pain; Left knee joint is without gross deformity, swelling or bruising; small <5mm superficial skin tear noted over the patellar area; very tender to touch but ROM is WNL; distal vascular and motor-sensory functions are intact bilaterally. DDx considered, but not limited to: Ankle sprain vs fructure Knee contusion vs dislocation meniscus tear ligament tear Patellar fracture Work up/Results: Knee xray Ankle and foot xray Plan/Discussion: - based on clinical presentation symptoms are due to trauma; will order xrays to r/o fractures - patient understands that diagnosis might be delayed and risks were discussed; she refused going to the hospital despite severe pain as she is concerned about COVID19 pandemic - advised rest, elevation, ice; avoid stress on injured joints; may continue with pain medications she has available - follow up with PCP as needed within 3-5 days or sooner if symptoms worsen or do not improve - advised when to seek immediate medical attention/911/ED - patient expressed understanding and agreed to tx plan In order to obtain further information and compare any laboratory results/values, I have accessed old patient records. This information was pertinent in my medical decision making today. Proper Personal Protective Equipment (PPE), including gloves, eye protection and masks were donned and doffed appropriately and all equipment cleaned using approved technique with germicidal disposable wipes prior to and after care of this patient according to [facility]'s infection prevention protocols. Time On Scene with Patient: 00:31:38 [email or web address] Not available 05/24/2019 20:52:02 05/26/2019 05/26/2019 Overview/History :Sheldon elizabeth is a 79-year-old female that is known to [facility] illness provider. She was most recently seen by a different provider after sustaining a fall in her bathroom. She was having foot pain, she had global X rays obtained. X rays showed her to have a 5th metatarsal fracture on the right. [facility] is out to see her today to splint her toe and discuss her orthopedics referral. Exam: On exam pt is awake and alert, LS CTA and Hr RRR , noted to have BLE edema unchanged from my previous visit, Some swelling to R pinky toe, chronic skin discoloration noted to BLE DDx considered, but not limited to:X rays showed her to have a 5th metatarsal fracture on the right. [facility] is out to see her today to splint her toe and discuss her orthopedics referral. X rays have confirmed a fracture of right 5th metatarsal. Swelling is likely partially due to this but also due to underlying fluid retention. She was recently seen for lower extremity swelling due to dietary indiscretion. Work up/Results: Plan/Discussion:Jozef cottrell's 5th metatarsal was assisted to the 4th metatarsal with medical tape. I did discuss with the patient that there often is not much if any surgical intervention for metatarsal fractures. I have placed an orthopedics referral for her to [facility]. I have suggested that she contact our office as they also have an urgent care center as well. Hopefully she can be fit for a postoperative shoe which makes ambulating more comfortable for her while her fracture heals. I did tell her that she could try taking NSAIDs such as ibuprofen to help with the inflammation. She is chronically on opioids for baseline pain control. In order to obtain further information and compare any laboratory results/values, I have accessed old patient records. This information was pertinent in my medical decision making today. Proper Personal Protective Equipment (PPE), including gloves, eye protection and masks were donned and doffed appropriately and all equipment cleaned using approved technique with germicidal disposable wipes prior to and after care of this patient according to [facility] infection prevention protocols. [email or web address] Not available 05/26/2019 13:09:16 06/09/2019 06/09/2019 Overview/History : 79 y/o female with PMH of DM no longer on oral hypoglycemic due to weight loss, history of staph colonization and recent 5th metatarsal fracture who presents with worsening RLE swelling and erythema consistent with acute cellulitis. Exam: RLE pretibial area with tender poorly demarcated erythematous rash with small scattered crusted lesions and 1+ pitting edema bilaterally slightly worse on the right, no ecchymosis or palpable cord, good capillary refill < 2 seconds, warm to touch, no temp change. DDx considered, but not limited to: DVT less likely since no palpable cord, ecchymosis, or calf pain. acute limb ischemia less likely since distal extremity warm to touch with good capillary refill, no N/T, no claudication septic joint less likely since no fever, tachycardia, limited ROM acute CHF exacerbation less likely given no SOB, PND, orthopnea acute cellulitis is likely given history of staph colonization, and physical exam consistent with cellulitis Work up/Results: patient hypertensive but no hypertensive urgency, should improve with diuresis. no further work up indicated at this time. Plan/Discussion: Plan to treat patient for acute cellulitis. Patient has allergy to PCN and Keflex. Therefore gave Doxycycline 100 mg BID x10 days. Also recommended that patient double her Lasix for the next 2-3 days to help improve swelling which should also improve with treatment of the infection. Advise patient to keep her legs elevated above the level of the heart. She should continue to ambulate and avoid being sedentary. If she does not see improvement within 48 hours she should contact [facility] or her PCP. She should keep the area clean and dry. Patients PCP contacted and updated on patient status. Patient verbalized understanding of discharge instructions and when to follow up with PCP/911/ED as needed. Patient in agreement with current plan and treatment. I have accessed patient records on the [place]. This information was pertinent in my medical decision making today. [email or web address] Not available 06/09/2019 19:32:31 06/30/2019 06/30/2019 Overview/History : Pt is a 79yo F with PMH sig for HTN, DM, HLD, DDD. Pt reports that her legs were improving while on the doxy. States shortly after finishing the dox her legs started to weep. She reports discomfort to her bilat LE. She states that she has [facility] coming out regularly for wound care and that she is doing the dressing changes in between the nurses visit. Exam: Pt is A/Ox3, non-toxic appearing, VSS, HRR, reps reg and unlabored on RA, lungs CTA bilat. Pt noted to 2-3+ pitting edema to bilat LE with weeping noted as well. No erythema, warmth or other s/s of infection noted. DDx considered, but not limited to: Lymphedema: possible given chronic nature of bilat LE edema with weeping CHF: possible, no reported prior hx but pt is on lasix for chronic LE edema, lung sound CTA Cellulitis: no s/s of infection noted at time of visit. DVT: unlikely edema to bilat LE is equal, no erythema or warmth noted. Work up/Results: no further work up indicated at this time. Plan/Discussion: Pt reassured that there is no s/s of infection. Advised to continue with current wound care plans and to keep compression to LE and to keep LE elevated throughout the day. Patients PCP contacted and updated on patient status. Patient verbalized understanding of discharge instructions and when to follow up with PCP/911/ED as needed. Patient in agreement with current plan and treatment. In order to obtain further information and compare any laboratory results/values, I have accessed old patient records. This information was pertinent in my medical decision making today. [email or web address] Not available 06/30/2019 09:29:44 07/05/2019 07/05/2019 Overview/History :Sheldon elizabeth is a 79-year-old female that is known to [facility] into this provider. She contacts [facility] today because she is still having swelling of her lower extremities with some serious drainage. She was seen about 5 days ago by another provider who assured her there was no evidence of infection in her bilateral lower extremities, she was advised to keep her legs elevated. Today the patient reports her legs continued to be swollen she says she has been elevating her legs however she is seated with legs in a dependent position during exam today and physical therapists who was at the home as [facility] was arriving indicates that she also found the patient sitting with her legs in a dependent position. She is also concerned that she has an itchy rash on her extremities and on her neck, this has been chronic, she has seen multiple dermatologists for this and has yet to receive a definitive diagnosis. Exam: On exam patient is awake and alert, nontoxic appearing. Afebrile and hemodynamically stable. She continues to have lower extremity edema, does not appear to be worse than on my previous visit with her last month. She does have some blisters on her right lower extremity that appear to have been filled with fluid and have now popped, there is a small amount of serous drainage on her leg. No signs of infection. DDx considered, but not limited to:Swelling could be due to lymphedema. Cellulitis is considered unlikely as patient is afebrile, there is no heat or significant erythema of the lower extremities. Venous insufficiency is also possible. DVT unlikely as swelling is bilateral. Work up/Results:Physica l exam only. Plan/Discussion:I reassured the patient that I do not see evidence of infection in her legs, I do not see a place for initiating oral antibiotics. I did offer to apply a dressing and wrap to 1 of her blisters but she felt she could not tolerate anything touching her skin, she did let me apply bacitracin. I discussed with her the importance of ensuring to elevate her legs in that when she can tolerate she should apply compression wraps to her bilateral lower extremities. She is having a telephone visit with her PCP later today. Could consider further increasing her diuretics, she is already on furosemide 40 mg b.i.d., could consider switching her to torsemide disease should get better diuresis from this. Ultimately I explained to the patient that her leg swelling is a chronic issue in management of this should be through her PCP not urgent care. I have encouraged her to discuss her nerve pain with her PCP today in her phone visit. I suspect she may benefit from increased nursing services perhaps [facility] could come and apply compression wraps for her. In order to obtain further information and compare any laboratory results/values, I have accessed old patient records. This information was pertinent in my medical decision making today. [email or web address] Not available 07/05/2019 14:04:11 Plan of Treatment Reminders Order Date Submit Date Provider Last Modified By Organization Details Last Modified Time Details Appointments None recorded. Lab None recorded. Referral orthopedi c referral 2019 020 [email or web address] Not available 0 15:27:05 Procedures None recorded. Surgeries None recorded. Imaging XR, foot, 3 or more view 2019 020 [facility] ([facility] [address], [address], 0 13:57:31 XR, ankle, 2 view 2019 020 [facility] ([facility] [address] [place], [address], 0 13:57:31 XR, knee, 1 or 2 view 2019 020 [facility] ([facility]), [address] [place], [address], 0 13:57:31 Medication Orders doxycycli ne hyclate 100 mg capsule [address] [id number], [address] [place] [address], [place], [address], 0 08:57:15 Patient TargetsNo targets recorded. Patient Instructions Encounter Date Encounter Id Patient Instructions Last Modified By Organization Details Last Modified Time 05/24/2019 [id number] Thank you for yo ur visit with [facility] today. We cannot always find the exact cause of your symptoms during your initial visit. Please follow up with your primary care provider or specialist to be rechecked or seek medical attention if your symptoms do not go away or get worse. If you develop any new or worsening symptoms and need after hours care, please go to nearest ER and/or call 911. If you have additional concerns or develop a change in your condition between 8am-10pm, please call [facility] at [phone] to help navigate your care. Thank you for your visit with [facility] today. You do not appear to have a fracture or dislocation that requires immediate surgical intervention. However, small breaks or ligament tears may not be obvious on initial examination. Given this concern, we may have placed you in a temporary splint. If an xray is indicated, we will help direct you to the best option to obtain your imaging study. We have also given you follow up directions. Please follow up with your primary care physician or specialist as directed. If you develop any new or worsening symptoms and need after hours care, please go to nearest ER and/or call 911. If you have additional concerns or develop a change in your condition between 8am-10pm, please call [facility] at [phone] to help navigate your care. [email or web address] Not available 05/24/2019 17:06:41 06/09/2019 [id number] Thank you for yo ur visit with [facility] today. We cannot always find the exact cause of your symptoms during your initial visit. Please follow up with your primary care provider or specialist to be rechecked or seek medical attention if your symptoms do not go away or get worse. If you develop any new or worsening symptoms and need after hours care, please go to nearest ER and/or call 911. If you have additional concerns or develop a change in your condition between 8am-10pm, please call [facility] at [phone] to help navigate your care. [email or web address] Not available 06/09/2019 09:40:51 06/30/2019 [id number] Thank you for yo ur visit with [facility] today. We cannot always find the exact cause of your symptoms during your initial visit. Please follow up with your primary care provider or specialist to be rechecked or seek medical attention if your symptoms do not go away or get worse. If you develop any new or worsening symptoms and need after hours care, please go to nearest ER and/or call 911. If you have additional concerns or develop a change in your condition between 8am-10pm, please call [facility] at [phone] to help navigate your care. [email or web address] Not available 06/30/2019 08:57:29 07/05/2019 [id number] Thank you for yo ur visit with [facility] today. We cannot always find the exact cause of your symptoms during your initial visit. Please follow up with your primary care provider or specialist within 12-24 hours to be rechecked or seek medical attention if your symptoms do not go away or get worse. If you develop any new or worsening symptoms and need after hours care, please go to nearest ER and/or call 911. If you have additional concerns or develop a change in your condition between 8am-10pm, please call [facility] at [phone] to help navigate your care. [email or web address] Not available 07/05/2019 14:04:26 Reason for Referral Orthopedic Referral for Clos ed fracture of fifth metatarsal bone of right foot Referring Physician: Everardo Muhammad, Emergency Medicine, Encounter Date: 05/26/2019 Results Created Date Observation Date Name Description Value Unit Range Abnormal Flag Note LastModifiedBy Organization Detail LastModifiedTime 05/25/19 20 05/25/2019 foot compl ete, min 3V FOOT COMPLE TE, MIN 3V, RIGHT FINDIN GS: 5th metata rsal fractu re with slight malali gnment . Soft tissue s appear swolle n. CONCLU BALWINDER: Acute 5th metata rsal fractu re. ELECTR ONICAL LY SIGNED BY ALTON POZO M.D. 020 10:35: 16 AM EDT. [facility] [address], [place], [address], 05/25/2019 15:56:07 05/25/19 20 05/25/2019 ankle AP and lat 2V ANKLE AP and LAT 2V, RIGHT FINDIN GS: No acute fractu re or disloc ation. The osseou s struct ures appear intact . Joint spaces are narrow ed. Soft tissue s are unrema rkable . CONCLU BALWINDER: No acute osseou s abnorm ality. Degene rative change s. ELECTR ONICAL LY SIGNED BY ALTON POZO M.D. 10:35: 16 AM EDT. [facility] [address], [place], [address], 05/25/2019 15:56:07 05/25/19 20 05/25/2019 knee AP or lat 1- 2V KNEE AP OR LAT 1- 2V, LEFT FINDIN GS: No acute fractu re or disloc ation. The osseou s struct ures appear intact . Joint spaces are narrow ed. Soft tissue s are unrema rkable . CONCLU BALWINDER: No acute osseou s abnorm ality. Degene rative change s. ELECTR ONICAL LY SIGNED BY ALTON POZO M.D. 10:35: 16 AM EDT. FOOT COMPLE TE, MIN 3V, RIGHT Result s: 5th metata rsal fractu re with slight malali gnment . Soft tissue s appear swolle n. Conclu balwinder: Acute 5th metata rsal fractu re. Electr onical ly signed by ALTON POZO M.D. 10:35: 16 AM EDT. ANKLE AP and LAT 2V, RIGHT Result s: No acute fractu re or disloc ation. The osseou s struct ures appear intact . Joint spaces are narrow ed. Soft tissue s are unrema rkable . Conclu balwinder: No acute osseou s abnorm ality. Degene rative change s. Electr onical ly signed by ALTON POZO M.D. 10:35: 16 AM EDT. KNEE AP OR LAT 1- 2V, LEFT Result s: No acute fractu re or disloc ation. The osseou s struct ures appear intact . Joint spaces are narrow ed. Soft tissue s are unrema rkable . Conclu balwinder: No acute osseou s abnorm ality. Degene rative change s. Electr onical ly signed by ALTON POZO M.D. 020 10:35: 16 AM EDT. [facility] [address], [place], [address], 05/25/2019 15:56:07 Result Notes None recorded. Medical Equipment None Reported. Allergies Allergen ID Allergen Name Allergen Category Reaction Reaction Severity Criticality Documentation Date Start Date Code Code System Note Provider Name and Address Organization Details Recorded Time 356787 Product containin g penicilli n (product) medicatio n Not available Not available Not available 05/20/2019 30983 8001 SNOMED EVERARDO MUHAMMAD , UPPER MARKER [address], [place], [address], [place] [facility] 0 08:55:42 [id number] morphine medicatio n Not available Not available Not available 05/20/2019 7052 RxNorm EVERARDO MUHAMMAD , [address]PP[employer] [address], [place], [address], [place] [facility] 0 08:55:55 [id number] codeine medicatio n Not available Not available Not available 05/20/2019 2670 RxNorm EVERARDODESIRE MUHAMMAD , UPPER [address], [place] [facility] [place], [address], [place] [facility] 0 08:56:10 [id number] Keflex medicatio n Not available Not available Not available 05/20/2019 84701 7 RxNorm EVERARDO MUHAMMAD , [address]PP[employer] [address] [address], [place] [facility] [place], [address], [place] [facility] 0 08:56:31 420208 nitrofura ntoin medicatio n Not available Not available Not available 05/20/2019 7454 RxNorm EVERARDODESIRE MUHAMMAD , UPPER MARK[address], [place], [address], [place] [facility] 0 08:56:41 232243 Celebrex medicatio n Not available Not available Not available 05/20/2019 47244 7 RxNorm EVERARDO MUHAMMAD NP [address] [facility] [place], [address], [place] [facility] 0 08:56:52 Medications Name Sig Start Date Stop Date Status Note LastModified by Organization Details LastModified Time furosemide 40 mg tablet active Not Available Not Available Not Available nystatin 100,000 unit/mL oral suspension TAKE 5 ML (1 TEASPOON) BY MOUTH 4 TIMES A DAY FOR 14 DAYS active Not Available Not Available No t Available doxycycline hyclate 100 mg capsule TAKE 1 CAPSULE BY MOUTH TWICE A DAY active Not Available Not Available No t Available azithromyci n 250 mg tablet 05/19 completed Not Available Not Available Not Available fosfomycin tromethamin e 3 gram oral packet TAKE 1 PACK BY MOUTH TODAY AND REPEAT ON DAY 3 active Not Available Not Available No t Available Lidocaine Viscous 2 % mucosal solution active Not Available Not Available Not Available cephalexin 250 mg capsule 05/19 completed Not Available Not Available Not Available Synthroid 150 mcg tablet active Not Available Not Available Not Available sucralfate 1 gram tablet TAKE 1 TABLET BY MOUTH 3 TIMES A DAY BEFORE MEALS AND AT BEDTIME active Not Available Not Available No t Available phenazopyri dine 200 mg tablet TAKE 1 TABLET BY MOUTH 3 TIMES A DAY FOR 2 DAYS active Not Available Not Available No t Available ondansetron HCl 4 mg tablet 1 TABLET BY MOUTH EVERY 8 HOURS,X30 DAYS active Not Available Not Available No t Available atenolol 25 mg tablet active Not Available Not Available No t Available clindamycin HCl 150 mg capsule active Not Available Not Available Not Available potassium chloride ER 10 mEq tablet,exte nded release TAKE 1 TABLET BY MOUTH 2 TIMES A DAY FOR 30 DAYS active Not Available Not Available No t Available levofloxaci n 250 mg tablet 05/19 completed Not Available Not Available Not Available doxepin 10 mg capsule active Not Available Not Available N ot Available sulfamethox azole 800 mg-trimetho prim 160 mg tablet TAKE 1 TABLET BY MOUTH TWICE A DAY FOR 7 DAYS. DRINK PLENTY OF FLUIDS WHILE TAKING. active Not Available Not Available No t Available doxycycline monohydrate 100 mg tablet 05/19 completed Not Available Not Available Not Available tramadol 50 mg tablet TAKE 1 TABLET BY MOUTH EVERY 8 HOURS NEEDED FOR SEVERE PAIN active Not Available Not Available No t Available triamcinolo ne acetonide 0.1 % topical cream active Not Available Not Available Not Available spironolact one 25 mg tablet TAKE 1 TABLET BY MOUTH EVERY MORNING active Not Available Not Available No t Available methenamine hippurate 1 gram tablet TAKE 1 TABLET BY MOUTH TWICE A DAY WITH VITAMIN C active Not Available Not Available No t Available hydromorpho ne 2 mg tablet TAKE 1 TO 2 TABLETS BY MOUTH EVERY 6 HOURS NEEDED active Not Available Not Available No t Available betamethaso ne valerate 0.1 % topical cream active Not Available Not Available Not Available baclofen 10 mg tablet TAKE 1 TABLET BY MOUTH 3 TIMES A DAY FOR 10 DAYS NEEDED FOR SPASM active Not Available Not Available No t Available gemfibrozil 600 mg tablet TAKE 1 TABLET BY MOUTH 2 TIMES A DAY FOR 90 DAYS active Not Available Not Available No t Available glipizide ER 2.5 mg tablet, extended release 24 hr 05/19 completed Not Available Not Available Not Available ropinirole 2 mg tablet active Not Available Not Available Not Available cephalexin 500 mg capsule 05/19 completed Not Available Not Available Not Available esomeprazol e magnesium 40 mg capsule,del ayed release active Not Available Not Available Not Available triamcinolo ne acetonide 0.1 % topical ointment active Not Available Not Available Not Available fluoxetine 10 mg capsule active Not Available Not Available Not Available mupirocin calcium 2 % topical cream active Not Available Not Available Not Available docusate sodium 100 mg capsule TAKE 2 CAPSULES BY MOUTH DAILY FOR 30 DAYS NEEDED FOR CONSTIPAT ION active Not Available Not Available No t Available irbesartan 75 mg tablet TAKE 1 TABLET BY MOUTH EVERY DAY active Not Available Not Available No t Available halobetasol propionate 0.05 % topical cream active Not Available Not Available Not Available mupirocin 2 % topical ointment APPLY TO AFFECTED AREA 3 TIMES A DAY active Not Available Not Available No t Available albuterol sulfate HFA 90 mcg/actuati on aerosol inhaler INHALE 2 PUFFS EVERY 4 HOURS NEEDED FOR WHEEZING active Not Available Not Available No t Available fluticasone propionate 50 mcg/actuati on nasal spray,suspe nsion active Not Available Not Available Not Available oxycodone 5 mg tablet active Not Available Not Available No t Available clindamycin 1 % lotion active Not Available Not Available N ot Available Premarin 0.3 mg tablet active Not Available Not Available Not Available Urinary Pain Relief 95 mg tablet TAKE ONE TABLET BY MOUTH EVERY 8 HOURS NEEDED active Not Available Not Available No t Available Alcohol Prep Pads active Not Available Not Available No t Available duloxetine 20 mg capsule,del ayed release TAKE 1 CAPSULE BY MOUTH AT BEDTIME active Not Available Not Available No t Available pregabalin 50 mg capsule TAKE 1 CAPSULE BY MOUTH TWICE A DAY active Not Available Not Available No t Available FreeStyle Lite Strips USE DAILY TO CHECK FASTING GLUCOSE active Not Available Not Available No t Available cefixime 400 mg capsule TAKE 1 CAPSULE BY MOUTH DAILY FOR 6 DAYS active Not Available Not Available No t Available Vitals Date Recorded Heart rate Oxygen saturation Oxygen saturation in Arterial blood by Pulse oximetry Respiratory rate Body temperature Systolic And Diastolic Provider Name and Address Organization Details Last Updated DateTime 0 92 /min 99 % 99 % 18 /min 98.9 [degF] 154/82 mm[Hg] Not Available [facility] 0 17:15:41 Date Recorded Oxygen saturation Oxygen saturation in Arterial blood by Pulse oximetry Heart rate Body temperature Respiratory rate Systolic And Diastolic Provider Name and Address Organization Details Last Updated DateTime 0 98 % 98 % 102 /min 98.8 [degF] 20 /min 124/72 mm[Hg] Not Available [facility] 0 12:22:36 Date Recorded Oxygen saturation Oxygen saturation in Arterial blood by Pulse oximetry Body temperature Respiratory rate Heart rate Systolic And Diastolic Provider Name and Address Organization Details Last Updated DateTime 0 100 % 100 % 98.6 [degF] 16 /min 84 /min 162/90 mm[Hg] Not Available [facility] 0 09:38:43 Date Recorded Respiratory rate Heart rate Body temperature Oxygen saturation Oxygen saturation in Arterial blood by Pulse oximetry Systolic And Diastolic Provider Name and Address Organization Details Last Updated DateTime 0 20 /min 74 /min 98.2 [degF] 100 % 100 % 132/64 mm[Hg] Not Available [facility] 0 09:17:23 Date Recorded Oxygen saturation Oxygen saturation in Arterial blood by Pulse oximetry Body temperature Heart rate Respiratory rate Systolic And Diastolic Provider Name and Address Organization Details Last Updated DateTime 0 100 % 100 % 98.4 [degF] 74 /min 20 /min 142/72 mm[Hg] Not Available [facility] 0 13:23:42 Social History Question Answer Notes LastModified by Organizat ion Details LastModified Time Tobacco Smoking Status Former Smoker EVERARDO MUHAMMAD, RICHIE [address], [place], [address], [place] [facility] 05/20/2019 09:00:57 Do You Have An Advance Directive? No [email or web address] Information not available 05/20/2019 What Is Your Code Status? Full Code [email or web address] Information not available 05/20/2019 Within The Past 12 Months, Has It Happened That The Food You Bought Just Didn't Last And You Didn't Have Money To Get More. No [email or web address] Information not available 05/20/2019 Within The Past 12 Months, Have You Worried That Your Food Would Run Out Before You Got Money To Buy More. No [email or web address] Information not available 05/20/2019 Fall Risk: Do You Feel Unsteady When Standing Or Walking? Yes [email or web address] Information not available 05/20/2019 We Know That How And When People Interact With Friends And Family Can Be Very Different From Person To Person. How Often Do You Have The Opportunity To See Or Talk To People That You Care About And Feel Close To? (Ex: Talking To Friends On The Phone Or Visiting Friends Or Family Or Going To [employer] Or Club Meetings) Choose Not To Answer This Question [email or web address] Information not available 05/20/2019 We Know From Many Of Our Patients That Covering All Of Their Costs Can Be Difficult At Times. This Can Cause Stress And Impact Health. In The Past Year, Have You Been Unable To Get Any Of The Following When It Was Really Needed? No [email or web address] Information not available 05/20/2019 What Is Your Housing Situation Today? I Have Housing [email or web address] Information not available 05/20/2019 Would You Like Help Connecting To Resources? None [email or web address] Information not available 05/20/2019 What Was The Date Of Your Most Recent Tobacco Screening? 02/08/1989 Information not available 05/20/2019 Sex: Unknown Functional Status None recorded. Mental Status None recorded. Family History Relationship Description Onset Age of this Age Resolved Age Notes LastModified by Organization Details LastModified Time Mother Coronary arterioscler osis [email or web address] Not available 12/2019 09:03:23 Medical History Condition Response Diabetes Y Coronary Artery Disease N Cancer N Stroke N Depression Y COPD N Asthma N High Cholesterol Y Pulmonary Embolism N Hypertension Y Kidney Disease N Gynecological HistoryNo gynecological history recorded. Obstetrics History GPAL:G 0 P 0 0 0 0 Past Encounters Encounter ID Performer Location Encounter Start Date Encounter Closed Date Diagnosis/Indication Diagnosis SNOMED-CT Code Diagnosis ICD10 Code Diagnosis IMO Codes Diagnosis Note [id number] EVERARDO MUHAMMAD [facility] [address] [facility] [place] [address] 05/20/2019 08:53:37 05/24/2019 14:30:27 Swelling of bilateral lower limbs 772796211 M79.89 Skin lesion 64893567 L98 .9 [id number] JOZEF GARCIA [facility] [address] [place] [address] 05/24/2019 17:05:40 05/26/2019 12:52:05 Injury of foot 807192816 S99.921A Knee pain 57712128 M25.5 69 [id number] EVERARDO MUHAMMAD [facility] [address] [facility] [place] [address] 05/26/2019 12:07:43 05/26/2019 14:22:49 Closed fracture of fifth metatarsal bone of right foot [id number] 8982988 S92.351D [id number] VAUGHN HARRIS NP [facility] [address] [facility] [place] [address] 06/09/2019 09:35:27 06/12/2019 13:01:05 Cellulitis of lower limb 213551128 L03.119 [id number] VAUGHN HARRIS NP [facility] [address] [facility] [place] [address] 06/30/2019 08:56:15 06/30/2019 11:14:56 Edema of lower extremity 403137702 R60.0 [id number] EVERARDO MUHAMMAD [facility] [address] [facility] [place] [address] 07/05/2019 13:18:56 07/07/2019 11:09:42 Edema of lower extremity 459135253 R60.0 Health Concerns Section Related Observation LastModified by Organization Detai ls LastModified Time None Recorded Concern Status LastModified by Organization Details LastModified Time None Recorded Advance Directives Directive N: Payers Insurance Date Sequence Insurance Name Policy Number Policy Vazquez Covered Member ID Vazquez Member ID Guarantor Name 05/11/2021 1 [place] [employer] Ana Vernon [id number] Ana Vernon 05/11/2021 1 [place] [employer] Ana Vernon [id number] Ana Vernon 05/11/2021 2 [employer] (MEDICARE SUPPLEMENT) Ana Vernon [id number] Ana Vernon 05/11/2021 1 *SELF PAY* Ana Vernon [id number] Ana Vernon Notes Date Note Type Note Provider Name and Address Organization Details Recorded Time 05/24/2019 text/html Mrs. Vernon is a 79 yo female known to but new to this provider who presents with complain of right foot pain and left knee pain after a fall; patient reports she fell yesterday; the fall was mechanical in nature; denies head trauma; only injured her right foot and left knee. Patient states pain is severe in her right foot; she is not able to put any weight on her foot. Patient has been taking pain medications and applying ice. Patient denies any other symptoms. JOZEF GARCIA [address], [place], [address], [facility] [place] [facility] 05/24/2019 20:52:10 05/26/2019 text/html This is a 79-year-old female that is known to [employer] [facility] [facility] and this provider. She has a medical history significant for depression, diabetes, hyperlipidemia, hypertension, restless leg syndrome, degenerative joint disease and arthritis. [facility], she fell in the bathroom. She had x-rays completed which revealed a 5th metatarsal fracture. [facility] was following up with the patient today to discuss findings with her and splint her toe. EVERARDO MUHAMMAD NP [address], [place], [address], [facility] 05/26/2019 13:09:23 06/09/2019 text/html Patient is a pleasant 79 y/o F known to [facility] and was seen 2 weeks ago for 5th Metatarsal fracture. Patient now complains of worsening RLE swelling and redness. In the interim patient was seen by JOZEF Barcenas at [facility] and states that she was found to have two more fractures on the side of her right foot and was told to wear a soft a boot. She has used as needed oxycodone for foot pain and takes tramadol and baclofen for chronic back pain. She has another back surgery that is pending. She states that she has not been wearing the soft boot due to increased pain and swelling. She had tried taking 80 mg of Lasix twice a day for a few days but does not feel as though the swelling had gone down. She states that she has more pain at the end of the day and the swelling is a bit better in the morning. She notes sores on her foot and all of her body that she believes she caught in the hospital sometime ago around the time of her nephrolithiasis. She was seen by infectious disease at that time, previous notes reviewed in [facility] and she was diagnosed with staph colonization. Otherwise she is feeling well and denies fever, chills, nausea, shortness of breath, PND, orthopnea. She denies any leg pain while ambulating but does get cramps when she is laying down at night. Her legs are hard and warm to touch at times. She is diabetic and states that her sugars have been averaging around 150-160. She says since she lost weight she has not been on oral hypoglycemics. VAUGHN HARRIS, RICHIE [address], [place], [address], [place] [facility] 06/09/2019 19:32:36 06/30/2019 text/html Pt was seen earlier this month for a similar complaint. Pt is followed by ID. She was placed on Doxy for cellulitis. Pt reports improvement in the swelling and redness to her legs while on the antibiotics. She states she asked her PCP to continue the antibiotics. Pt is currently getting VNA services to help with wound care of the lower extremities. Pt states that the legs started to weep about 2 days after she finished the antibiotic. Pt reports pain to her legs where the blisters are. VAUGHN HARRSI, RICHIE [address], [place], [address], [place] [facility] 06/30/2019 09:30:26 07/05/2019 text/html General HPI Temp late - DHReported by Patient Muscles of 79-year-old female that is known to [facility] N this provider. She has a medical history significant for depression, diabetes, hypertension, hyperlipidemia, arthritis, restless leg syndrome and DDD. She was seen less than a week ago for complaints of swelling and weeping from her bilateral lower extremities. She has a history of a skin condition worse she gets sores on her extremities that are itchy, she has seen multiple dermatologists for this without a definitive diagnosis. She has been having visiting nursing services coming out once a week to assess her legs, she has been doing her own dressing changes in between. She is concerned that there is fluid draining from the pocket blisters on her legs. She also reports that her legs are uncomfortable. When I arrived at the home, I was able to speak with her physical therapist who said that she has been ambulating well but is also concerned that the patient frequently keeps her legs in a dependent position. Physical therapists was trying to encourage her to use a recliner chair to elevate her legs. All visits that I have had with this patient she is sitting in a wheelchair with her legs in a dependent position. EVERARDO MUHAMMAD, RICHIE [address], [place], [address], [place] [facility] 07/05/2019 14:04:32 OBGyn Episode No OBEpisode recorded.
== END 2024-11-22 06:07 | disposition home or self-care (01) ==
LOC: HO.MMNH1L 06:06
PROVIDERS: Visit Provider Physician Assistant Medical
DX: Z13.89 Encounter for screening for other disorder (principal)